=== PATIENT | female | born 1940 | race Caucasian/White ===

== ENCOUNTER 2017-06-24 10:22 | Outpatient (CLI) | payer MEDICARE, BC ==
[2017-06-24 10:54] LABS: Hemoglobin 12.9 g/dL (12.0-16.0); Mean Corpuscular HGB CONC 32.1 g/dL (32.0-36.0); Mean Corpuscular Hemoglobin 31.7 pg (27.0-31.0); Mean Corpuscular Volume 98.6 fl (81.0-99.0); Mean Platelet Volume 6.4 fL (7.4-10.4); Platelet Count 281 thou/uL (130-400); RBC Distribution Width 11.9 % (11.5-14.5); Red Blood Cell (RBC) Count 4.08 mill/uL (4.20-5.40); White Blood Cell (WBC) Count 6.8 thou/uL (4.8-10.8)
[2017-06-24 11:08] LABS: ALT (SGPT) 14 U/L (8-55); AST (SGOT) 16 U/L (5-34); Albumin 4.2 g/dL (3.4-4.8); Alkaline Phosphatase 86 U/L (40-150); Anion Gap 14 mmol/L (10-20); BUN (Urea Nitrogen) 15 mg/dL (9.8-20.1); Bilirubin, Total 0.3 mg/dL (0.2-1.2); Calc. Creatinine Clearance 0 mL/min (70-130); Calcium 9.8 mg/dL (7.8-10.44); Carbon Dioxide 23 mmol/L (23-31); Chloride 105 mmol/L (98-107); Estimated GFR-MDRD 41; Glucose 99 mg/dL (83-110); Potassium 3.9 mmol/L (3.5-5.1); Protein, Total 7.2 g/dL (6.0-8.3); Sodium 138 mmol/L (136-145)
== END 2017-06-24 10:23 | disposition home or self-care (01) ==
LOC: MADLAB 10:22
PROVIDERS: ATTEND Psychiatry & Neurology Psychiatry
DX: F41.0 Panic disorder [episodic paroxysmal anxiety] (principal)
CPT/HCPCS: 36415; 80053; 80178; 84443; 85027

== ENCOUNTER 2017-12-13 10:49 | Outpatient (CLI) | payer MEDICARE, BC ==
--- NOTE | 2017-12-13 12:54 | RAD ---
CHEST TWO VIEWS: Date: 12-13-17 Comparison: 06-07-17 History: Dyspnea, pulmonary embolism. FINDINGS: Evaluation for pulmonary embolism cannot be performed via radiograph. There is linear interstitial de nsity with pulmonary hyperinflation, stable, suggesting COPD. No pneumothorax, pleural fluid, focal c onsolidation or alveolar edema. Heart and mediastinal contours are stable. IMPRESSION: Stable chronic findings as detailed above. If there is concern for pulmonary embolism, CT angiogram o f chest or ventilation perfusion lung scan advised. POS: MARY
== END 2017-12-13 10:50 | disposition home or self-care (01) ==
LOC: MADRAD 10:49
PROVIDERS: ATTEND Obstetrics & Gynecology
DX: I26.99 Other pulmonary embolism without acute cor pulmonale (principal)
CPT/HCPCS: 71046

== ENCOUNTER 2018-11-12 08:57 | Emergency (ER) | payer MEDICARE, BC ==
[2018-11-12] MEDS ORDERED: HYDROcodone/Acetaminophen 5/325 mg Tablet ONE (09:49)
[2018-11-12] MEDS ORDERED: Gabapentin 100 MG CAP ONE (09:49)
== END 2018-11-12 10:20 | disposition home or self-care (01) ==
LOC: MADERS 08:57
DX: F41.1 Generalized anxiety disorder (principal); I10 Essential (primary) hypertension; F31.9 Bipolar disorder, unspecified; F41.9 Anxiety disorder, unspecified; Z79.899 Other long term (current) drug therapy; Z79.01 Long term (current) use of anticoagulants
CPT/HCPCS: 99283

== ENCOUNTER 2018-12-28 14:47 | Outpatient (CLI) | payer MEDICARE, BC ==
--- NOTE | 2018-12-28 16:03 | RAD ---
PA AND LATERAL VIEWS CHEST: Date: 12/28/18 HISTORY: Shortness of breath on exertion. FINDINGS: Comparison made with exam of 12/13/17. The heart size is stable. Changes of COPD are again seen. No focal areas of consolidation, pneumothor aces, or pleural effusions are identified. Bones are osteopenic. IMPRESSION: No radiographic evidence of acute cardiopulmonary process. POS: C
== END 2018-12-28 14:48 | disposition home or self-care (01) ==
LOC: MADRAD 14:47
PROVIDERS: ATTEND Family Medicine
DX: R06.02 Shortness of breath (principal)
CPT/HCPCS: 71046

== ENCOUNTER 2019-04-17 14:19 | Outpatient (CLI) | payer MEDICARE, BC ==
--- NOTE | 2019-04-17 16:08 | CT ---
EXAM: Chest CTA scan with contrast: 3-D volume rendering performed HISTORY: Short of breath COMPARISON: None FINDINGS: No significant filling defect of pulmonary trunk or main pulmonary arteries. Limited evaluation of th e segmental and subsegmental Scattered subpleural interstitial and groundglass opacities bilaterally No pleural effusion. No pneumothorax. No adenopathy. No acute process of the mediastinal structures. Stable hypodensity, 1.7 cm involves anterior left kidney. Density is slightly greater than typical fo r simple cyst. IMPRESSION: No acute pulmonary embolus. Incidental left renal hypodensity with Hounsfield units greater than typical for a cyst, although is stable in size favoring a benign process. Dedicated renal ultrasound would prove useful to further interrogate.
== END 2019-04-17 14:20 | disposition home or self-care (01) ==
LOC: MADCT 14:19
PROVIDERS: ATTEND Family Medicine
DX: R06.02 Shortness of breath (principal); Z86.711 Personal history of pulmonary embolism
CPT/HCPCS: 71260; 87086

== ENCOUNTER 2019-05-01 12:52 | Outpatient (CLI) | payer MEDICARE, BC ==
--- NOTE | 2019-05-01 13:33 | ULT ---
Exam: Bilateral renal ultrasound HISTORY: Chronic kidney disease, stage III COMPARISON: None FINDINGS: Right kidney: Normal cortical echotexture. No hydronephrosis. Cyst emanating from the lower pole cliff uring 1.6 x 1.8 x 1.7 m Right kidney measurements: 9.6 x 5.2 x 3.6 cm. Left kidney: Normal cortical echotexture. No hydronephrosis Left kidney measurements 8.6 x 4.4 x 4.6 cm. Urinary bladder: Normal mucosa. Prevoid volume 719 mL. Post void volume 21 mL. IMPRESSION: No hydronephrosis.
== END 2019-05-01 12:53 | disposition home or self-care (01) ==
LOC: MADULT 12:52
PROVIDERS: ATTEND Internal Medicine Nephrology
DX: I12.9 Hypertensive chronic kidney disease with stage 1 through stage 4 chronic kidney disease, or unspecified chronic kidney disease (principal); N18.3 Chronic kidney disease, stage 3 (moderate)
CPT/HCPCS: 76770

== ENCOUNTER 2019-08-30 15:53 | Emergency (ER) | payer MEDICARE, BC ==
[~2019-08-30 15:53] MED LIST: Iopamidol 370 76% 125 ML VIAL FS ONE
[2019-08-30 16:18] LABS: #Basophils 0.1 thou/uL (0.0-0.2); #Eosinphils 0.4 thou/uL (0.0-0.7); #Lymphocytes 2.3 thou/uL (1.20-3.40); #Monocytes 0.6 thou/uL (0.11-0.59); #Neutrophils 3.4 thou/uL (1.40-6.50); %Basophils 0.9 % (0.0-1.0); %Eosinophils 5.6 % (0.0-10.0); %Lymphocytes 33.7 % (21.0-51.0); %Monocytes 9.3 % (0.0-10.0); %Neutrophils 50.5 % (42.0-75.0); Hemoglobin 12.5 g/dL (12.0-16.0); Mean Corpuscular HGB CONC 33.5 g/dL (32.0-36.0); Mean Corpuscular Hemoglobin 31.4 pg (27.0-31.0); Mean Corpuscular Volume 93.6 fL (78.0-98.0); Mean Platelet Volume 6.5 fL (7.4-10.4); Platelet Count 180 thou/uL (130-400); RBC Distribution Width 13.1 % (11.5-14.5); Red Blood Cell (RBC) Count 3.98 mill/uL (4.20-5.40); White Blood Cell (WBC) Count 6.8 thou/uL (4.8-10.8)
[2019-08-30 16:23] LABS: INR-International Normal Ratio 2.3; PTT 27.5 SEC (22.9-36.1)
[2019-08-30 16:30] LABS: ALT (SGPT) 64 U/L (8-55); AST (SGOT) 51 U/L (5-34); Albumin 3.8 g/dL (3.4-4.8); Alkaline Phosphatase 74 U/L (40-110); Anion Gap 16 mmol/L (10-20); BUN (Urea Nitrogen) 20 mg/dL (9.8-20.1); Bilirubin, Total 0.2 mg/dL (0.2-1.2); CK (CPK) 47 U/L (29-168); Calc. Creatinine Clearance 0 mL/min (70-130); Calcium 8.7 mg/dL (7.8-10.44); Carbon Dioxide 21 mmol/L (23-31); Chloride 109 mmol/L (98-107); Estimated GFR-MDRD 50; Globulin 3.1 g/dL (2.4-3.5); Glucose 96 mg/dL (83-110); Lipase 41 U/L (8-78); Potassium 4.3 mmol/L (3.5-5.1); Protein, Total 6.9 g/dL (6.0-8.3); Sodium 142 mmol/L (136-145)
--- NOTE | 2019-08-30 17:39 | CT ---
CTA Angio Chest W WO Con History: Chest pain Comparison: Chest radiograph June 2019 Findings: CT angiogram chest performed after the intravenous administration of contrast. 3-D renderin g provided. No proximal segmental pulmonary arterial filling defect. No pericardial effusion. No aneurysmal dilat ation of the aorta. There is extensive motion artifact limiting the evaluation. Heart size appears normal. Limited evaluation of the upper abdomen appears unremarkable. No thoracic spine compression deformity. Sternum and manubrium are intact. Bilateral breast implants. There are peripheral cluster of nodules in the posterior basal right upper lobe with the largest nodu le measuring up to 7 mm size. There are also cluster of nodules in the lateral basal left lower lobe which is slightly more confluent peripheral. Some abnormal nodules within the lingula with assoc iated bronchiectasis. Few scattered nodules right lower lobe. Nodules of either increase in size or have increased in number from the March 2019 exam. Impression: 1. No pulmonary embolism. 2. Increase in size and number of scattered peripheral nodules in the right upper lobe lingula and le ft lower lobe suggesting multifocal bronchopneumonia. Follow-up CT the chest after treatment in 3 months is recommended for evaluate for resolution. 3. Intracapsular and likely extracapsular rupture left breast implant.
[2019-08-30] MEDS ORDERED: Sodium Chloride 0.9% 100 ML ONE (17:47)
[2019-08-30] MEDS ORDERED: cefTRIAXone\\ROCEPHIN 1 GM VIAL ONE (17:47)
== END 2019-08-30 19:16 | disposition short-term general hospital (02) ==
LOC: MADERS 15:53
DX: R07.89 Other chest pain (principal); I10 Essential (primary) hypertension; J44.9 Chronic obstructive pulmonary disease, unspecified; E03.9 Hypothyroidism, unspecified; E78.5 Hyperlipidemia, unspecified; E78.00 Pure hypercholesterolemia, unspecified; K21.9 Gastro-esophageal reflux disease without esophagitis; M19.90 Unspecified osteoarthritis, unspecified site; F41.9 Anxiety disorder, unspecified; F31.9 Bipolar disorder, unspecified; Z79.899 Other long term (current) drug therapy; Z86.711 Personal history of pulmonary embolism; Z79.01 Long term (current) use of anticoagulants
CPT/HCPCS: 36415; 71275; 80053; 82550; 83690; 84484; 85025; 85610; 85730; 87040; 93005; 96365; J0696; J3490; Q9967

== ENCOUNTER 2019-09-07 10:50 | Outpatient (CLI) | payer MEDICARE, BC ==
[2019-09-07 16:53] LABS: INR-International Normal Ratio 3.1; Prothrombin Time 31.9 SEC (12.0-14.7)
== END 2019-09-07 10:51 | disposition home or self-care (01) ==
LOC: MADLABBHPM 10:50
PROVIDERS: ATTEND Family Medicine
DX: Z86.711 Personal history of pulmonary embolism (principal); Z86.79 Personal history of other diseases of the circulatory system
CPT/HCPCS: 36415; 85610; 85730

== ENCOUNTER 2019-09-11 13:16 | Outpatient (CLI) | payer MEDICARE, BC ==
[2019-09-11 13:55] LABS: PTT 36.6 SEC (22.9-36.1)
[2019-09-11 13:56] LABS: Prothrombin Time 60.3 SEC (12.0-14.7)
[2019-09-11 14:25] LABS: INR-International Normal Ratio 7.1
== END 2019-09-11 13:17 | disposition home or self-care (01) ==
LOC: MADLAB 13:16
PROVIDERS: ATTEND Family Medicine
DX: Z86.711 Personal history of pulmonary embolism (principal); Z86.79 Personal history of other diseases of the circulatory system
CPT/HCPCS: 36415; 85610; 85730

== ENCOUNTER 2019-09-14 10:00 | Outpatient (CLI) | payer MEDICARE, BC ==
[2019-09-14 10:32] LABS: INR-International Normal Ratio 3.9; PTT 34.7 SEC (22.9-36.1); Prothrombin Time 38.2 SEC (12.0-14.7)
== END 2019-09-14 10:01 | disposition home or self-care (01) ==
LOC: MADLABBHPM 10:00
PROVIDERS: ATTEND Family Medicine
DX: Z86.711 Personal history of pulmonary embolism (principal); Z86.79 Personal history of other diseases of the circulatory system
CPT/HCPCS: 36415; 85610; 85730

== ENCOUNTER 2019-09-21 12:33 | Outpatient (CLI) | payer MEDICARE, BC ==
[2019-09-21 12:51] LABS: PTT 24.2 SEC (22.9-36.1); Prothrombin Time 13.6 SEC (12.0-14.7)
== END 2019-09-21 12:34 | disposition home or self-care (01) ==
LOC: MADLAB 12:33
PROVIDERS: ATTEND Family Medicine
DX: Z51.81 Encounter for therapeutic drug level monitoring (principal); Z79.899 Other long term (current) drug therapy; Z86.711 Personal history of pulmonary embolism; Z86.79 Personal history of other diseases of the circulatory system
CPT/HCPCS: 36415; 85610; 85730

== ENCOUNTER 2019-09-28 16:20 | Emergency (ER) | payer MEDICARE, BC ==
[2019-09-28] MEDS ORDERED: Ketorolac Tromethamine 60 MG/2 ML VIAL ONE ×2 (17:23→17:27)
[2019-09-28] MEDS ORDERED: Cyclobenzaprine 10 MG TAB ONE (17:23)
--- NOTE | 2019-09-28 17:56 | CT ---
CT HEAD WITHOUT IV CONTRAST COMPARISON: 06/21/2016 HISTORY: Head injury. Patient is on warfarin. TECHNIQUE: Axial CT imaging at 5 mm intervals from vertex through skull base without contrast FINDINGS: There is stable area of encephalomalacia seen within the right anterior frontal lobe likely due to pr ior insult or infarction. Low-density focus is again seen in the left lentiform nucleus likely due to remote lacunar infarction. A small low-density focus is seen in the right cerebellar hemisphere li saurabh due to small remote infarction. Mild cerebral volume loss is again seen. There is no evidence of an acute infarction, hemorrhage, mass effect, or midline shift. The ventricular system is normal i n size, shape, and position. Visualized paranasal sinuses are clear. Osseous structures appear intact. IMPRESSION: 1. No acute intracranial abnormality demonstrated. 2. Stable chronic changes as above.
--- NOTE | 2019-09-28 18:00 | CT ---
EXAM: CT cervical spine PROVIDED CLINICAL HISTORY: Injury to neck. TECHNIQUE: Contiguous axial CT images are obtained through the cervical spine from the skull base to the T2 leve l. Sagittal and coronal reformatted images are provided. COMPARISON: 06/21/2016 FINDINGS: Multilevel degenerative changes are again seen in the cervical spine with multilevel osteophytes and narrowing of the intervertebral disc spaces at multiple levels as well as facet hypertrophic changes. Multilevel neural foraminal narrowing is present due to bony encroachment with moderate and severe degrees of neural foraminal narrowing seen at multiple levels. No evidence for fracture or traumatic subluxation. No prevertebral soft tissue swelling apparent. Mild symmetric biapical pleural and parenchymal scarring is present. Visualized thyroid gland demonstrates a grossly normal nonenhanced CT appearance. IMPRESSION: No evidence for fracture or traumatic subluxation. Multilevel degenerative changes with moderate and severe degrees of neural foraminal narrowing at mul tiple levels.
[2019-09-28 18:12] LABS: INR-International Normal Ratio 2.4; Prothrombin Time 25.6 SEC (12.0-14.7)
== END 2019-09-28 18:35 | disposition home or self-care (01) ==
LOC: MADERS 16:20
DX: S00.93XA Contusion of unspecified part of head, initial encounter (principal); E03.9 Hypothyroidism, unspecified; K21.9 Gastro-esophageal reflux disease without esophagitis; E78.5 Hyperlipidemia, unspecified; E78.00 Pure hypercholesterolemia, unspecified; I10 Essential (primary) hypertension; M19.90 Unspecified osteoarthritis, unspecified site; J44.9 Chronic obstructive pulmonary disease, unspecified; F31.9 Bipolar disorder, unspecified; F41.0 Panic disorder [episodic paroxysmal anxiety]; Z79.899 Other long term (current) drug therapy; Z86.711 Personal history of pulmonary embolism; W18.30XA Fall on same level, unspecified, initial encounter
CPT/HCPCS: 36415; 70450; 72125; 85610; J1885

== ENCOUNTER 2019-10-10 13:45 | Outpatient (CLI) | payer MEDICARE, BC ==
[2019-10-10 14:36] LABS: INR-International Normal Ratio 3.2; PTT 33.6 SEC (22.9-36.1); Prothrombin Time 32.8 SEC (12.0-14.7)
== END 2019-10-10 13:46 | disposition home or self-care (01) ==
LOC: MADLAB 13:45
PROVIDERS: ATTEND Family Medicine
DX: Z86.711 Personal history of pulmonary embolism (principal); Z86.79 Personal history of other diseases of the circulatory system
CPT/HCPCS: 36415; 85610; 85730

== ENCOUNTER 2019-10-25 13:57 | Outpatient (CLI) | payer MEDICARE, BC ==
[2019-10-25 14:21] LABS: INR-International Normal Ratio 3.3; PTT 35.7 SEC (22.9-36.1); Prothrombin Time 32.9 SEC (12.0-14.7)
== END 2019-10-25 13:58 | disposition home or self-care (01) ==
LOC: MADLABBHPM 13:57
PROVIDERS: ATTEND Family Medicine
DX: Z86.711 Personal history of pulmonary embolism (principal); Z86.79 Personal history of other diseases of the circulatory system
CPT/HCPCS: 36415; 85610; 85730

== ENCOUNTER 2019-11-12 14:10 | Outpatient (CLI) | payer MEDICARE, BC ==
[2019-11-12 14:28] LABS: INR-International Normal Ratio 2.7; PTT 28.6 SEC (22.9-36.1); Prothrombin Time 28.6 SEC (12.0-14.7)
== END 2019-11-12 14:11 | disposition home or self-care (01) ==
LOC: MADLAB 14:10
PROVIDERS: ATTEND Family Medicine
DX: Z51.81 Encounter for therapeutic drug level monitoring (principal); Z86.711 Personal history of pulmonary embolism; Z86.79 Personal history of other diseases of the circulatory system
CPT/HCPCS: 36415; 85610; 85730

== ENCOUNTER 2019-12-04 13:57 | Outpatient (CLI) | payer MEDICARE, BC ==
[2019-12-04 15:17] LABS: #Eosinphils 0.2 thou/uL (0.0-0.7); #Lymphocytes 1.7 thou/uL (1.20-3.40); #Monocytes 0.6 thou/uL (0.11-0.59); #Neutrophils 2.4 thou/uL (1.40-6.50); %Basophils 0.8 % (0.0-1.0); %Eosinophils 4.2 % (0.0-10.0); %Lymphocytes 34.8 % (21.0-51.0); %Monocytes 12.1 % (0.0-10.0); %Neutrophils 48.1 % (42.0-75.0); Hemoglobin 12.8 g/dL (12.0-16.0); Mean Corpuscular Hemoglobin 31.5 pg (27.0-31.0); Mean Corpuscular Volume 98.4 fL (78.0-98.0); Mean Platelet Volume 6.9 fL (7.4-10.4); Platelet Count 232 thou/uL (130-400); RBC Distribution Width 12.8 % (11.5-14.5); Red Blood Cell (RBC) Count 4.07 mill/uL (4.20-5.40)
[2019-12-04 15:19] LABS: INR-International Normal Ratio 2.2; PTT 30.9 SEC (22.9-36.1); Prothrombin Time 24.7 SEC (12.0-14.7)
[2019-12-04 15:31] LABS: ALT (SGPT) 39 U/L (8-55); AST (SGOT) 27 U/L (5-34); Albumin 3.8 g/dL (3.4-4.8); Alkaline Phosphatase 72 U/L (40-110); Anion Gap 13 mmol/L (10-20); BUN (Urea Nitrogen) 16 mg/dL (9.8-20.1); Bilirubin, Total 0.3 mg/dL (0.2-1.2); Calc. Creatinine Clearance 0 mL/min (70-130); Calcium 9.1 mg/dL (7.8-10.44); Carbon Dioxide 27 mmol/L (23-31); Cardiac Risk 1.8 (Less than 4.5); Chloride 108 mmol/L (98-107); Cholesterol 140 mg/dl (< 200 Desired); Estimated GFR-MDRD 47; Globulin 2.9 g/dL (2.4-3.5); Glucose 63 mg/dL (83-110); HDL Cholesterol 77 mg/dL (>60 Neg Risk); LDL Cholesterol, Calculated 47 mg/dL; Potassium 3.7 mmol/L (3.5-5.1); Protein, Total 6.7 g/dL (6.0-8.3); Sodium 144 mmol/L (136-145); Triglycerides 81 mg/dL (Less than 150)
== END 2019-12-04 13:58 | disposition home or self-care (01) ==
LOC: MADLABBHPM 13:57
PROVIDERS: ATTEND Internal Medicine Cardiovascular Disease
DX: I25.10 Atherosclerotic heart disease of native coronary artery without angina pectoris (principal); E78.00 Pure hypercholesterolemia, unspecified; I50.32 Chronic diastolic (congestive) heart failure
CPT/HCPCS: 36415; 80053; 80061; 82728; 83540; 83880; 85025; 85610; 85730

== ENCOUNTER 2019-12-26 12:54 | Outpatient (CLI) | payer MEDICARE, BC ==
[2019-12-26 13:24] LABS: INR-International Normal Ratio 3.4; PTT 34.1 SEC (22.9-36.1); Prothrombin Time 33.8 SEC (12.0-14.7)
== END 2019-12-26 12:55 | disposition home or self-care (01) ==
LOC: MADLAB 12:54
PROVIDERS: ATTEND Family Medicine
DX: Z86.711 Personal history of pulmonary embolism (principal); Z86.79 Personal history of other diseases of the circulatory system
CPT/HCPCS: 36415; 85610; 85730

== ENCOUNTER 2020-03-29 14:36 | Emergency (ER) | payer MEDICARE, BC ==
[2020-03-29] MEDS ORDERED: Cephalexin 500 MG CAP ONE (15:08)
== END 2020-03-29 15:15 | disposition home or self-care (01) ==
LOC: MADERS 14:36
DX: L03.116 Cellulitis of left lower limb (principal); K21.9 Gastro-esophageal reflux disease without esophagitis; E03.9 Hypothyroidism, unspecified; E55.9 Vitamin D deficiency, unspecified; I34.1 Nonrheumatic mitral (valve) prolapse; I10 Essential (primary) hypertension; M19.90 Unspecified osteoarthritis, unspecified site; J44.9 Chronic obstructive pulmonary disease, unspecified; F41.9 Anxiety disorder, unspecified; F31.9 Bipolar disorder, unspecified; F41.0 Panic disorder [episodic paroxysmal anxiety]; Z79.01 Long term (current) use of anticoagulants; Z79.891 Long term (current) use of opiate analgesic; Z79.899 Other long term (current) drug therapy
CPT/HCPCS: 99283

== ENCOUNTER 2020-08-29 14:15 | Outpatient (CLI) | payer MEDICARE, BC ==
[2020-08-29 14:45] LABS: INR-International Normal Ratio 3.1; PTT 32.3 sec (22.9-36.1); Prothrombin Time 31.7 sec (12.0-14.7)
== END 2020-08-29 14:16 | disposition home or self-care (01) ==
LOC: MADLAB 14:15
PROVIDERS: ATTEND Nurse Practitioner Family
DX: I50.32 Chronic diastolic (congestive) heart failure (principal); Z86.711 Personal history of pulmonary embolism; Z86.79 Personal history of other diseases of the circulatory system
CPT/HCPCS: 36415; 83880; 84443; 85610; 85730

== ENCOUNTER 2021-02-11 11:12 | Outpatient (CLI) | payer MEDICARE, BC ==
[2021-02-11 11:43] LABS: PTT 57.2 sec (22.9-36.1)
[2021-02-11 12:40] LABS: Prothrombin Time 62.8 sec (12.0-14.7)
[2021-02-11 12:55] LABS: INR-International Normal Ratio 7.1
== END 2021-02-11 11:13 | disposition home or self-care (01) ==
LOC: MADLAB 11:12
PROVIDERS: ATTEND Family Medicine
DX: Z51.81 Encounter for therapeutic drug level monitoring (principal); R07.89 Other chest pain; I26.99 Other pulmonary embolism without acute cor pulmonale; Z79.01 Long term (current) use of anticoagulants
CPT/HCPCS: 36415; 71046; 85610; 85730

== ENCOUNTER 2021-02-18 12:19 | Outpatient (CLI) | payer MEDICARE, BC ==
[2021-02-18 12:58] LABS: INR-International Normal Ratio 1.7; PTT 27.1 sec (22.9-36.1); Prothrombin Time 20.7 sec (12.0-14.7)
== END 2021-02-18 12:20 | disposition home or self-care (01) ==
LOC: MADLAB 12:19
PROVIDERS: ATTEND Family Medicine
DX: Z51.81 Encounter for therapeutic drug level monitoring (principal); I26.99 Other pulmonary embolism without acute cor pulmonale; Z79.01 Long term (current) use of anticoagulants
CPT/HCPCS: 36415; 85610; 85730

== ENCOUNTER 2021-02-25 11:49 | Outpatient (CLI) | payer MEDICARE, BC ==
[2021-02-25 12:14] LABS: INR-International Normal Ratio 3.1; PTT 35.3 sec (22.9-36.1); Prothrombin Time 32.7 sec (12.0-14.7)
== END 2021-02-25 11:50 | disposition home or self-care (01) ==
LOC: MADLAB 11:49
PROVIDERS: ATTEND Family Medicine
DX: Z51.81 Encounter for therapeutic drug level monitoring (principal); I26.99 Other pulmonary embolism without acute cor pulmonale; Z79.01 Long term (current) use of anticoagulants
CPT/HCPCS: 36415; 85610; 85730

== ENCOUNTER 2021-03-06 12:05 | Outpatient (CLI) | payer MEDICARE, BC ==
[2021-03-06 12:33] LABS: INR-International Normal Ratio 3.5; PTT 35.9 sec (22.9-36.1)
== END 2021-03-06 12:06 | disposition home or self-care (01) ==
LOC: MADLAB 12:05
PROVIDERS: ATTEND Family Medicine
DX: Z51.81 Encounter for therapeutic drug level monitoring (principal); I26.99 Other pulmonary embolism without acute cor pulmonale; Z79.01 Long term (current) use of anticoagulants
CPT/HCPCS: 36415; 85610; 85730

== ENCOUNTER 2021-03-20 14:37 | Outpatient (CLI) | payer MEDICARE, BC ==
[2021-03-20 15:13] LABS: INR-International Normal Ratio 2.6; PTT 34.5 sec (22.9-36.1); Prothrombin Time 28.3 sec (12.0-14.7)
[2021-03-20 15:20] LABS: Anion Gap 19 mmol/L (10-20); BUN (Urea Nitrogen) 18 mg/dL (9.8-20.1); Calc. Creatinine Clearance 0 mL/min (70-130); Calcium 10.7 mg/dL (7.8-10.44); Carbon Dioxide 27 mmol/L (23-31); Chloride 101 mmol/L (98-107); Glucose 95 mg/dL (83-110); Potassium 3.5 mmol/L (3.5-5.1); Sodium 143 mmol/L (136-145)
== END 2021-03-20 14:38 | disposition home or self-care (01) ==
LOC: MADLAB 14:37
PROVIDERS: ATTEND Family Medicine
DX: Z51.81 Encounter for therapeutic drug level monitoring (principal); I26.99 Other pulmonary embolism without acute cor pulmonale; N18.32 Chronic kidney disease, stage 3b; Z79.01 Long term (current) use of anticoagulants
CPT/HCPCS: 36415; 80048; 85610; 85730

== ENCOUNTER 2021-04-30 12:14 | Outpatient (CLI) | payer MEDICARE, BC ==
[2021-04-30 13:01] LABS: #Basophils 0.1 thou/uL (0.0-0.2); #Eosinphils 0.3 thou/uL (0.0-0.7); #Lymphocytes 2.3 thou/uL (1.20-3.40); #Neutrophils 4.5 thou/uL (1.40-6.50); %Basophils 0.7 % (0.0-1.0); %Eosinophils 3.7 % (0.0-10.0); %Lymphocytes 28.4 % (21.0-51.0); %Monocytes 12.3 % (0.0-10.0); %Neutrophils 54.9 % (42.0-75.0); Hemoglobin 13.3 g/dL (12.0-16.0); Mean Corpuscular HGB CONC 31.6 g/dL (32.0-36.0); Mean Corpuscular Hemoglobin 31.9 pg (27.0-31.0); Mean Corpuscular Volume 101.2 fL (78.0-98.0); Mean Platelet Volume 8.7 fL (7.4-10.4); Platelet Count 169 thou/uL (130-400); Red Blood Cell (RBC) Count 4.15 mill/uL (4.20-5.40); White Blood Cell (WBC) Count 8.2 thou/uL (4.8-10.8)
[2021-04-30 13:13] LABS: PTT 39.7 sec (22.9-36.1); Prothrombin Time 22.8 sec (12.0-14.7)
[2021-04-30 13:23] LABS: ALT (SGPT) 8 U/L (8-55); AST (SGOT) 17 U/L (5-34); Albumin 3.8 g/dL (3.4-4.8); Alkaline Phosphatase 62 U/L (40-110); Anion Gap 17 mmol/L (10-20); BUN (Urea Nitrogen) 14 mg/dL (9.8-20.1); Bilirubin, Total 0.4 mg/dL (0.2-1.2); Calc. Creatinine Clearance 0 mL/min (70-130); Calcium 9.7 mg/dL (7.8-10.44); Carbon Dioxide 27 mmol/L (23-31); Chloride 100 mmol/L (98-107); Globulin 3.5 g/dL (2.4-3.5); Glucose 94 mg/dL (83-110); Potassium 3.6 mmol/L (3.5-5.1); Protein, Total 7.3 g/dL (5.8-8.1); Sodium 140 mmol/L (136-145)
== END 2021-04-30 12:15 | disposition home or self-care (01) ==
LOC: MADLAB 12:14
PROVIDERS: ATTEND Family Medicine
DX: Z51.81 Encounter for therapeutic drug level monitoring (principal); R10.30 Lower abdominal pain, unspecified; I26.99 Other pulmonary embolism without acute cor pulmonale; K57.30 Diverticulosis of large intestine without perforation or abscess without bleeding; N28.1 Cyst of kidney, acquired; Z79.01 Long term (current) use of anticoagulants; Z86.711 Personal history of pulmonary embolism; Z86.79 Personal history of other diseases of the circulatory system
CPT/HCPCS: 36415; 74177; 80053; 85025; 85610; 85730

== ENCOUNTER 2021-05-19 15:21 | Outpatient (CLI) | payer MEDICARE, BC ==
[2021-05-19 16:25] LABS: INR-International Normal Ratio 1.9; PTT 27.7 sec (22.9-36.1); Prothrombin Time 21.9 sec (12.0-14.7)
== END 2021-05-19 15:22 | disposition home or self-care (01) ==
LOC: MADLAB 15:21
PROVIDERS: ATTEND Family Medicine
DX: Z51.81 Encounter for therapeutic drug level monitoring (principal); I26.99 Other pulmonary embolism without acute cor pulmonale; Z86.711 Personal history of pulmonary embolism; Z86.79 Personal history of other diseases of the circulatory system
CPT/HCPCS: 36415; 85610; 85730

== ENCOUNTER 2021-06-26 12:26 | Outpatient (CLI) | payer MEDICARE, BC ==
[2021-06-26 13:17] LABS: INR-International Normal Ratio 2.1; PTT 31.6 sec (22.9-36.1); Prothrombin Time 23.5 sec (12.0-14.7)
== END 2021-06-26 12:27 | disposition home or self-care (01) ==
LOC: MADLAB 12:26
PROVIDERS: ATTEND Family Medicine
DX: Z51.81 Encounter for therapeutic drug level monitoring (principal); I26.99 Other pulmonary embolism without acute cor pulmonale; Z79.01 Long term (current) use of anticoagulants
CPT/HCPCS: 36415; 85610; 85730

== ENCOUNTER 2021-06-29 10:59 | Outpatient (CLI) | payer MEDICARE, BC ==
[2021-06-29] MEDS ORDERED: Iopamidol 370 76% 100 ML VIAL ONE (12:32)
== END 2021-06-29 11:00 | disposition home or self-care (01) ==
LOC: MADRAD 10:59
PROVIDERS: ATTEND Family Medicine
DX: K57.40 Diverticulitis of both small and large intestine with perforation and abscess without bleeding (principal); A04.72 Enterocolitis due to Clostridium difficile, not specified as recurrent; R19.00 Intra-abdominal and pelvic swelling, mass and lump, unspecified site; K57.30 Diverticulosis of large intestine without perforation or abscess without bleeding
CPT/HCPCS: 74177; Q9967

== ENCOUNTER 2021-07-22 14:24 | Outpatient (CLI) | payer MEDICARE, BC ==
[2021-07-22 15:16] LABS: INR-International Normal Ratio 1.5; Prothrombin Time 17.9 sec (12.0-14.7)
== END 2021-07-22 14:25 | disposition home or self-care (01) ==
LOC: MADLAB 14:24
PROVIDERS: ATTEND Family Medicine
DX: Z51.81 Encounter for therapeutic drug level monitoring (principal); I26.99 Other pulmonary embolism without acute cor pulmonale; Z79.01 Long term (current) use of anticoagulants
CPT/HCPCS: 36415; 85610; 85730

== ENCOUNTER 2021-08-10 13:47 | Emergency (ER) | payer MEDICARE, BC | END 2021-08-10 14:50 | disposition home or self-care (01) | LOC: MADERS 13:47 | DX: S93.432A Sprain of tibiofibular ligament of left ankle, initial encounter (principal); E03.9 Hypothyroidism, unspecified; K21.9 Gastro-esophageal reflux disease without esophagitis; E78.5 Hyperlipidemia, unspecified; E78.00 Pure hypercholesterolemia, unspecified; I10 Essential (primary) hypertension; M19.90 Unspecified osteoarthritis, unspecified site; J44.9 Chronic obstructive pulmonary disease, unspecified; X50.1XXA Overexertion from prolonged static or awkward postures, initial encounter ==

== ENCOUNTER 2021-09-18 15:25 | Outpatient (CLI) | payer MEDICARE, BC ==
[2021-09-18 15:51] LABS: INR-International Normal Ratio 2.8; PTT 37.1 sec (22.9-36.1); Prothrombin Time 30.1 sec (12.0-14.7)
== END 2021-09-18 15:26 | disposition home or self-care (01) ==
LOC: MADLAB 15:25
PROVIDERS: ATTEND Family Medicine
DX: Z51.81 Encounter for therapeutic drug level monitoring (principal); I26.99 Other pulmonary embolism without acute cor pulmonale; A04.72 Enterocolitis due to Clostridium difficile, not specified as recurrent; Z79.01 Long term (current) use of anticoagulants
CPT/HCPCS: 36415; 85610; 85730

== ENCOUNTER 2024-04-19 08:35 | Emergency (ER) | payer MEDICARE, BC ==
[2024-04-19] MEDS ORDERED: Acetaminophen 500 MG TAB ONE (09:27)
== END 2024-04-19 09:33 | disposition home or self-care (01) ==
LOC: MADERS 08:35
DX: S61.411A Laceration without foreign body of right hand, initial encounter (principal); E78.00 Pure hypercholesterolemia, unspecified; I10 Essential (primary) hypertension; E03.9 Hypothyroidism, unspecified; Z79.899 Other long term (current) drug therapy; W23.1XXA Caught, crushed, jammed, or pinched between stationary objects, initial encounter
CPT/HCPCS: 99283

== ENCOUNTER 2024-05-04 11:44 | Emergency (ER) | payer MEDICARE, BC ==
[2024-05-04 12:48] LABS: Bilirubin Negative (Negative); Blood, Urine Negative (Negative); Glucose, Urine (Dipstick) Negative (Negative); Ketone, Urine Negative (Negative); Leukocyte Negative (Negative); Nitrite Negative (Negative); Protein, Urine (Dipstick) Negative (Neg-Trace); Urobilinogen 0.2 mg/dL (Less than 2)
[2024-05-04 12:50] LABS: Clarity Hazy (Clear)
[2024-05-04 12:54] LABS: Bacteria/HPF 2+ HPF (None Seen); CAUTI Indications for Culture Pelvic or flank pain; RBC/HPF 0-3 HPF (0-3)
[2024-05-04 12:55] LABS: Urine Culture Reflex No No
[2024-05-04] MEDS ORDERED: Ondansetron ODT 4 MG TAB ONE (13:10)
[2024-05-04] MEDS ORDERED: Pantoprazole DR 40 MG TAB ONE (13:10)
== END 2024-05-04 15:26 | disposition home or self-care (01) ==
LOC: MADERS 11:44
DX: K29.50 Unspecified chronic gastritis without bleeding (principal); E78.00 Pure hypercholesterolemia, unspecified; J44.9 Chronic obstructive pulmonary disease, unspecified; E03.9 Hypothyroidism, unspecified; Z79.899 Other long term (current) drug therapy
CPT/HCPCS: 71046; 81001; Q0162

== ENCOUNTER 2024-12-28 13:38 | Outpatient (CLI) | payer MEDICARE, BC | END 2024-12-28 13:39 | disposition home or self-care (01) | LOC: MADRAD 13:38 | PROVIDERS: ATTEND Physician Assistant | DX: R05.1 Acute cough (principal) | CPT/HCPCS: 71046 ==

== ENCOUNTER 2025-10-08 16:14 | Outpatient (CLI) | payer MEDICARE, BC ==
[2025-10-08 16:39] LABS: #Basophils 0.1 thou/uL (0.0-0.2); #Eosinophils 0.2 thou/uL (0.0-0.7); #Lymphocytes 2.0 thou/uL (1.20-3.40); #Monocytes 0.7 thou/uL (0.11-0.59); #Neutrophils 4.3 thou/uL (1.40-6.50); %Basophils 1.1 % (0.0-1.0); %Eosinophils 3.2 % (0.0-10.0); %Lymphocytes 26.9 % (21.0-51.0); %Monocytes 9.1 % (0.0-10.0); %Neutrophils 59.8 % (42.0-75.0); Hematocrit 44.2 % (36.0-47.0); Hemoglobin 14.1 g/dL (12.0-16.0); Mean Corpuscular Hemoglobin 30.6 pg (27.0-31.0); Mean Corpuscular Volume 96.2 fl (78.0-98.0); Platelet Count 265 10x3/uL (130-400); Red Blood Cell (RBC) Count 4.60 mill/uL (4.20-5.40); White Blood Cell (WBC) Count 7.3 10x3/uL (4.8-10.8)
[2025-10-08 16:54] LABS: ALT (SGPT) 19 U/L (Less than 34); AST (SGOT) 31 U/L (11-34); Albumin 4.0 g/dL (3.1-4.5); Alkaline Phosphatase 111 U/L (40-110); Anion Gap 14 mmol/L (10-20); BUN (Urea Nitrogen) 20 mg/dL (9.8-20.1); Bilirubin, Total 0.2 mg/dL (0.3-1.2); Calc. Creatinine Clearance 0 mL/min (70-130); Calcium 9.3 mg/dL (7.8-10.44); Carbon Dioxide 23 mmol/L (23-31); Cardiac Risk 2.1 (Less than 4.5); Chloride 111 mmol/L (98-107); Cholesterol 148 mg/dl (< 200 Desired); Globulin 3.3 g/dL (2.4-3.5); Glucose 126 mg/dL (83-110); HDL Cholesterol 72 mg/dL (>60 Neg Risk); LDL Cholesterol, Calculated 46 mg/dL; Potassium 4.0 mmol/L (3.5-5.1); Sodium 144 mmol/L (136-145); Triglycerides 152 mg/dL (Less than 150)
== END 2025-10-08 16:15 | disposition home or self-care (01) ==
LOC: MADLAB 16:14
PROVIDERS: ATTEND Internal Medicine Cardiovascular Disease
DX: I25.10 Atherosclerotic heart disease of native coronary artery without angina pectoris (principal); E78.00 Pure hypercholesterolemia, unspecified; I10 Essential (primary) hypertension
CPT/HCPCS: 36415; 80053; 80061; 85025